=== PATIENT | female | born 1970 | race African-American/Black ===

== ENCOUNTER 2019-03-02 09:38 | Emergency (ER) | payer OTHER ==
[~2019-03-02] VITALS: Ht 165.1 cm; Wt 85.3 kg
[2019-03-02 09:39] VITALS: BP 157/89
== END 2019-03-02 10:41 | disposition home or self-care (01) ==
LOC: ER 09:38
DX: S83.91XA Sprain of unspecified site of right knee, initial encounter (principal); Z98.890 Other specified postprocedural states; X50.1XXA Overexertion from prolonged static or awkward postures, initial encounter; Y93.89 Activity, other specified; Y92.89 Other specified places as the place of occurrence of the external cause; Y99.0 Civilian activity done for income or pay